=== PATIENT | male | born 1970 | race Caucasian/White ===

== ENCOUNTER 2017-12-02 00:16 | Emergency (ER) | payer BC ==
[~2017-12-02] VITALS: Ht 185.4 cm; Wt 79.4 kg
[~2017-12-02 00:16] MED LIST: CELEBREX 200 M200 M1 PO; DOXYCYCLINE 10100 MG PO; IBUPROFEN 800800 M1 PO; KEFLEX500 MG PO; NOHOMEMEDICATIONS; NORCO 5-325 TA1 EACH PO; TRAZODONE HCL50 MG PO
[2017-12-02 01:11] VITALS: BP 130/76
== END 2017-12-02 01:12 | disposition home or self-care (01) ==
LOC: M.ERS 00:16
DX: S99.822A Other specified injuries of left foot, initial encounter (principal); W22.8XXA Striking against or struck by other objects, initial encounter; Y93.89 Activity, other specified; Y92.89 Other specified places as the place of occurrence of the external cause; Y99.8 Other external cause status

== ENCOUNTER 2018-02-06 00:51 | Emergency (ER) | payer BC ==
[~2018-02-06] VITALS: Ht 188 cm; Wt 81.7 kg
[2018-02-06 02:02] LABS: ABSOLUTE BASOPHILS 0.1 thou/uL (0.0-0.2); ABSOLUTE EOSINOPHILS 0.3 thou/uL (0.0-0.7); ABSOLUTE LYMPHOCYTES 3.1 thou/uL (0.8-5.3); ABSOLUTE MONOCYTES 0.8 thou/uL (0.0-1.2); ABSOLUTE NEUTROPHILS 5.3 thou/uL (1.6-8.1); BASOPHILS 0.7 %; EOSINOPHILS 3.4 %; HEMATOCRIT 38.4 % (42.0-52.0); HEMOGLOBIN 13.1 gm/dL (14.0-18.0); LYMPHOCYTES 32.6 %; MCH 31.3 pg (26.0-34.0); MCHC 34.2 g/dL (28.0-37.0); MCV 91.6 fL (80.0-100.0); MONOCYTES 7.9 %; NUCLEATED RBCS 0 /100WBC; PLATELET COUNT* 290 thou/uL (150-400); POLYS 55.4 %; RBC 4.19 mil/uL (4.50-6.00); RDW-CV 13.1 % (10.5-14.5); WBC 9.6 thou/uL (4.0-11.0)
[2018-02-06 02:14] LABS: CALCIUM 8.7 mg/dL (8.5-10.1); CREATININE 0.7 mg/dL (0.6-1.3); POTASSIUM 3.7 mmol/L (3.5-5.1)
[2018-02-06 02:19] LABS: ALBUMIN 3.3 g/dL (3.4-5.0); TOTAL BILIRUBIN 0.3 mg/dL (<0.1-1.0); TOTAL PROTEIN 6.7 g/dL (6.4-8.2)
[2018-02-06] MEDS ORDERED: IBU800 MG PO (02:42)
[2018-02-06] MEDS ORDERED: KEFLEX500 M1 PO (02:42)
[2018-02-06 02:44] VITALS: BP 107/74
== END 2018-02-06 02:45 | disposition home or self-care (01) ==
LOC: M.ERS 00:51
PROVIDERS: Personal Emergency Response Attendant
DX: L72.3 Sebaceous cyst (principal)

== ENCOUNTER 2019-04-18 03:35 | Inpatient (IN) | payer BC ==
[2019-04-18] VITALS (7 sets, daily range): BP systolic 99–121; BP diastolic 49–72
[~2019-04-18] VITALS: Ht 188 cm; Wt 86.0 kg
[~2019-04-18 03:35] MED LIST changes: +IBU800 MG PO; +KEFLEX500 M1 PO
[2019-04-18 04:01] LABS: ABSOLUTE BASOPHILS 0.1 thou/uL (0.0-0.2); ABSOLUTE EOSINOPHILS 0.3 thou/uL (0.0-0.7); ABSOLUTE LYMPHOCYTES 3.1 thou/uL (0.8-5.3); ABSOLUTE NEUTROPHILS 10.6 thou/uL (1.6-8.1); BASOPHILS 0.5 %; HEMATOCRIT 42.2 % (42.0-52.0); HEMOGLOBIN 14.2 gm/dL (14.0-18.0); LYMPHOCYTES 20.8 %; MCH 30.7 pg (26.0-34.0); MCHC 33.5 g/dL (28.0-37.0); MCV 91.6 fL (80.0-100.0); MONOCYTES 6.4 %; MPV 8.5 fl. (7.2-11.1); NUCLEATED RBCS 0 /100WBC; PLATELET COUNT* 351 thou/uL (150-400); POLYS 70.3 %; RDW-CV 13.2 % (10.5-14.5); WBC 15.1 thou/uL (4.0-11.0)
[2019-04-18 04:12] LABS: PROTIME 10.1 Seconds (9.20-11.50)
[2019-04-18 04:51] LABS: BE -0.5 mmol/L (-2 to +3); PCO2 38.7 mmHg (35.0-45.0); PO2 88.9 mmHg (75.0-100.0); pH 7.409 (7.340-7.450)
[2019-04-18 05:06] LABS: CALCIUM 8.3 mg/dL (8.5-10.1); CREATININE 0.7 mg/dL (0.6-1.3); POTASSIUM 3.8 mmol/L (3.5-5.1); PROTIME 9.9 Seconds (9.20-11.50)
[2019-04-18 05:10] LABS: ALBUMIN 3.3 g/dL (3.4-5.0); TOTAL BILIRUBIN 0.3 mg/dL (<0.1-1.0); TOTAL PROTEIN 6.5 g/dL (6.4-8.2)
[2019-04-18] MEDS ORDERED: SUBOXONE 4 MG-1 EACH SUBLING (08:20)
[2019-04-18] MEDS ORDERED: REMERON15 MG PO (12:37)
[2019-04-18] MEDS ORDERED: ZANTAC 150MG T150 MG PO (12:38)
--- NOTE | 2019-04-18 18:46 | NUR ---
RECEIVED REPORT FROM JOAN DURON IN ER. PT TRANSFERED TO TELE FLOOR AROUND 1005. PT A&OX4. VSS. PT USING 2L PER NC FOR DESATURATIONS DOWN TO 88-89% DURING SLEEP. PT HAS RESTED OFTEN THIS SHIFT.CATERING ADMINISTRATIVE ASSISTANT PLACED TRACING SR WITH NO CHANGES THIS SHIFT. ADMISSION ASSESSMENT, EDUCATION AND HISTORY COMPLETED CHARTED. PT ORIENTED TO ROOM, BED AND CALL LIGHT. PT COMMUNICATES UNDERSTANDING. IV INTACT AND INFUSING IV. MEDS PER EMAR. PT HAS DENIED PAIN THIS SHIFT, ONLY REPORTING CHEST PRESSURE THAT WAS "VERY LITTLE". PT TOLERATING DIET. REQUESTING LOTS OF SODA TO DRINK, EDUCATED THAT WATER WAS A BETTER OPTION. FAMILY AT BEDSIDE THIS MORNING. PT CURRENTLY SITTING UP IN BED WATCHING TV. CALL LIGHT IS WITHIN REACH, HOURLY ROUNDING PERFORMED. LOW FALL RISK PRECAUTIONS IN PLACE.
[2019-04-18 19:28] LABS: AMP/METHAMP Negative (Negative); BARBITURATES Negative (Negative); BENZODIAZEPINES Negative (Negative); COCAINE Negative (Negative); METHADONE Negative (Negative); OPIATES POSITIVE (Negative); PCP Negative (Negative); THC Negative (Negative)
[2019-04-19] VITALS: BP 94/41
[2019-04-19 03:45] VITALS: BP 119/47
--- NOTE | 2019-04-19 04:46 | NUR ---
PT SLEPT WELL OVERNIGHT WITHOUT COMPLAINTS. AMBULATING IN [facility] AT HS. SCHEDULED SUBOXONE GIVEN INDICATED. LFA IVF INFUSING PER PUMP. UP AD RENETTA IN ROOM, VOIDS WITHOUT DIFFICULTY. RT TX GIVEN. O2 2L WHILE ASLEEP TO KEEP SATS WELL INTO 90'S. TELE SR. AM LAB DRAWN. ECHO TO BE DONE. ABLE TO USE CALL LITE AND MAKE NEEDS KNOWN.
--- NOTE | 2019-04-19 07:36 | EKG ---
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
[2019-04-19 08:00] VITALS: BP 103/56
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
[2019-04-19 12:17] VITALS: BP 104/45
[2019-04-19 16:12] VITALS: BP 111/65
--- NOTE | 2019-04-19 16:23 | NUR ---
ASSUMED PT CARE REPORT RECEIVED FROM NURSE. 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 ON RA. PT IS UP AD RENETTA. SKIN IS INTACT. NICOTINE PATCH. IV FLUID STOPPED ORDERED.IV ABX GIVEN. WILL CONTINUE TO MONITOR PT.
[2019-04-19 19:30] VITALS: BP 104/54
[2019-04-20] VITALS (7 sets, daily range): BP systolic 101–115; BP diastolic 46–60
--- NOTE | 2019-04-20 11:41 | NUR ---
MET WITH PT TO DISCUSS HOME SITUATION, DC PLAN. 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 HAS SUPPORTIVE FAMILY. HOPES TO GO HOME SOON ORDER FOR PORTABLE NEB ARRANGED THRU [employer]. TO BE DELIVERED TODAY. ASKED OLMAN DA SILVA TO WRITE SCRIPT FOR [facility] NO OTHER NEEDS ID'D
[2019-04-20] MEDS ORDERED: LEVAQUIN 500 M500 M2 PO (12:34)
[2019-04-20] MEDS ORDERED: SINGULAIR 10 MG10 M1 PO (12:34)
[2019-04-20] MEDS ORDERED: PREDNISONE 10 M10 MG PO (12:34)
--- NOTE | 2019-04-20 15:47 | 2DMMODE ---
[place] [address] 2 D/M-MODE ECHOCARDIOGRAM Name: JUSTIN KRISHNAN Room: [address]#: [id number] Admission: 04/18/19 Attend Phys: Selene Rosales MD Discharge: 04/20/19 Date of : 74 Date of Service: 04/20/19 1547 Report #: [id number] THIS REPORT FOR: //name// APPROVED REPORT Study performed: 04/20/2019 10:58:59 EXAM: Comprehensive 2D, Doppler, and color-flow Echocardiogram Patient Location: In-Patient Room #: 200 Status: routine BSA: 2.02 HR: 60 bpm BP: 115/54 mmHg Rhythm: NSR Other Information Study Quality: Good Indications Chest Pain 2D Dimensions IVSd: 10.18 (7-11mm) LVOT Diam: 23.83 (18-24mm) LVDd: 47.76 mm PWd: 8.96 (7-11mm) Ascending Ao: 34.65 (22-36mm) LVDs: 31.81 (25-40mm) Aortic Root: 37.77 mm Volumes Left Atrial Volume (Systole) LA ESV Index: 28.10 mL/m2 Aortic Valve AoV Peak Khang.: 1.38 m/s AO Peak Gr.: 7.56 mmHg LVOT Max P.46 mmHg AO Mean Gr.: 3.53 mmHg LVOT Mean P.76 mmHg LVOT Max V: 1.27 m/s AO V2 VTI: 25.17 cm LVOT Mean V: 0.74 m/s ESTER (VTI): 4.86 cm2 LVOT V1 VTI: 27.42 cm Mitral Valve E/A Ratio: 1.49 MV Decel. Time: 234.13 ms MV E Max Khang.: 0.88 m/[place] [address] 2 D/M-MODE ECHOCARDIOGRAM Name: JUSTIN KRISHNAN Room: [address]#: [id number] Admission: 04/18/19 Attend Phys: Selene Rosales MD Discharge: 04/20/19 Date of : 74 Date of Service: 04/20/19 1547 Report #: [id number] MV PHT: 67.90 ms MVA (PHT): 3.24 cm2 TDI E/Lateral E': 5.50 E/Medial E': 5.50 Medial E' Khang.: 0.16 m/s Lateral E' Khang.: 0.16 m/s Pulmonary Valve PV Peak Khang.: 0.94 m/s PV Peak Gr.: 3.57 mmHg Tricuspid Valve RAP Estimate: 5.00 mmHg TR Peak Gr.: 25.36 mmHg RVSP: 30.00 mmHg PA Pressure: 30.00 mmHg Left Ventricle The left ventricle is normal size. There is normal LV segmental wall motion. There is normal left ventricular wall thickness. Left ventricular systolic function is normal. LVEF is 60-65%. The left ventricular diastolic function is normal. Right Ventricle Right ventricle is dilated. The right ventricular systolic function is normal. Atria The left atrium size is normal. Right atrium is dilated. Aortic Valve The aortic valve is normal in structure. No aortic regurgitation is present. There is no aortic valvular stenosis. Mitral Valve The mitral valve is normal in structure. Mild mitral regurgitation. No evidence of mitral valve stenosis. Tricuspid Valve The tricuspid valve is normal in structure. Mild tricuspid regurgitation. The RVSP is 30-35 mmHg. Pulmonic Valve The pulmonary valve is normal in structure. Trace pulmonic regurgitation[place] [address] 2 D/M-MODE ECHOCARDIOGRAM Name: JUSTIN KRISHNAN Room: [address]#: [id number] Admission: 04/18/19 Attend Phys: Selene Rosales MD Discharge: 04/20/19 Date of : 74 Date of Service: 04/20/19 1547 Report #: [id number] The aortic root is normal in size. IVC is normal in size and collapses >50% with inspiration. Pericardium There is no pericardial effusion. <Conclusion> The left ventricle is normal size. There is normal left ventricular wall thickness. Left ventricular systolic function is normal. LVEF is 60-65%. The left ventricular diastolic function is normal. There is normal LV segmental wall motion. Mild mitral regurgitation. Mild tricuspid regurgitation. The RVSP is 30-35 mmHg. IVC is normal in size and collapses >50% with inspiration. <ELECTRONICALLY SIGNED> By: Kyler Monae MD, [facility] 04/20/19 1547 1547 1547 Kyler Monae MD, FACC /INF
== END 2019-04-20 13:52 | disposition home or self-care (01) | DRG 193 ==
LOC: M.ERS 03:35 → M.TBA-ER 06:33 → M.2W 06:33 → M.ORTHSURG 08:25 → M.TBA-ER 08:26 → M.2W 10:08
PROVIDERS: Internal Medicine; Personal Emergency Response Attendant; ADMIT Family Medicine
DX: J18.9 Pneumonia, unspecified organism (principal); J96.01 Acute respiratory failure with hypoxia; R07.89 Other chest pain; J20.9 Acute bronchitis, unspecified; R91.1 Solitary pulmonary nodule; F17.210 Nicotine dependence, cigarettes, uncomplicated; J43.9 Emphysema, unspecified; Z92.3 Personal history of irradiation; Z92.21 Personal history of antineoplastic chemotherapy; Z85.71 Personal history of Hodgkin lymphoma; Z79.899 Other long term (current) drug therapy; Z88.5 Allergy status to narcotic agent

== ENCOUNTER 2020-06-17 10:22 | Emergency (ER) | payer BC ==
[~2020-06-17] VITALS: Ht 185.4 cm; Wt 81.7 kg
[~2020-06-17 10:22] MED LIST changes: +LEVAQUIN 500 M500 M2 PO; +PREDNISONE 10 M10 MG PO; +REMERON15 MG PO; +SINGULAIR 10 MG10 M1 PO; +SUBOXONE 4 MG-1 EACH SUBLING; +ZANTAC 150MG T150 MG PO
[2020-06-17] MEDS ORDERED: PEPCID40 MG PO (10:31)
[2020-06-17] MEDS ORDERED: NORCO 5-325 TA1 EAC2 PO (12:14)
[2020-06-17 12:24] VITALS: BP 134/69
== END 2020-06-17 12:29 | disposition home or self-care (01) ==
LOC: M.ERS 10:22
DX: S50.02XA Contusion of left elbow, initial encounter (principal); Z88.5 Allergy status to narcotic agent; X50.9XXA Other and unspecified overexertion or strenuous movements or postures, initial encounter; Y93.89 Activity, other specified; Y92.89 Other specified places as the place of occurrence of the external cause; Y99.8 Other external cause status